=== PATIENT | male | born 1950 | race Caucasian/White ===

== ENCOUNTER 2019-02-23 06:49 | Inpatient (IN) | payer BC, MEDICARE ==
--- NOTE | 2019-02-16 11:38 | HPE ---
DATE OF ADMISSION: 02/23/2019 HISTORY OF PRESENT ILLNESS: This is a pleasant 68-year-old male with continuing symptomatic right knee osteoarthritis. He has consented for a right total knee arthroplasty per Dr. Yobani Champion. Medical optimization per Dr. Ramírez. X-rays are consistent with advanced osteoarthritis. ALLERGIES: Reports undesirable reaction to Z-Oz and previous cortisone injections. MEDICATIONS: - hydrochlorothiazide 25 mg 1 tablet orally once a day - Refresh 1.4 - 0.6% solution 1 drop ophthalmic daily - twice a day - aspirin 81 mg tablet delayed release 1 tablet orally once a day - enalapril maleate 20 mg tablet 1 tablet orally once a day - atorvastatin calcium 20 mg tablet 1 tablet orally once a day - metformin HCl 500 mg tablet 1 tablet q.a.m., 2 tablets q.p.m.; 1 tablet q.h.s. orally as directed MEDICAL HISTORY: Includes symptomatic right knee osteoarthritis, type 2 diabetes mellitus, asthma, gallbladder disease, hyperlipidemia, hypertension, and rheumatic fever. Transient ischemic attack (TIA) 10/2018. SURGICAL HISTORY: LASIK 1999, cholecystectomy and hernia repair 2015, knee surgery, hernia repair, right index finger release 03/31/2017. FAMILY HISTORY: Noncontributory. He denies any issue with anesthesia in the family. SOCIAL HISTORY: He has never smoked. He only has had about 3 or 4 alcohol drinks in the last year. Denies illicit drugs. REVIEW OF SYSTEMS: Denies chest pain, shortness of breath, dyspnea on exertion, fever, chills, malaise, upper respiratory or urinary tract symptoms. LABORATORIES: Reviewed lab results showed elevated glucose at 197, otherwise appearing within normal limits. EKG: Sinus rhythm with occasional ventricular premature complexes, which were new compared to prior borderline ECG, physician building construction contractor Kelvin Wilson DO. Chest X-ray: No acute abnormalities as read by Zan MD. MEDICAL CLEARANCE: Reviewed, per Dr. Ramírez, stating that the patient is cleared for surgery. PHYSICAL EXAMINATION: Vital Signs: Temperature 96.4. Height 67.75. Weight 187 pounds 4 ounces. Body mass index (BMI) 28.7. This is a pleasant, well-developed, well-nourished male, in no acute distress. He is alert and times three. Mood and affect are appropriate. He is ambulating without overt antalgia assistance or favoring. Normocephalic. Neck: Supple. Negative jugular venous distention (JVD) or bruits. Chest: Rises symmetrically. Lungs: Clear to auscultation. Chest: Regular rate and rhythm. Bowel sounds times four, soft, nontender. Bilateral lower extremities skin is intact, benign noninfectious looking. Right knee positive tenderness about the medial joint line with crepitance through flexion and extension. IMPRESSION: 1. Right knee symptomatic osteoarthritis. 2. The patient consented for right total knee arthroplasty per Dr. Yobani Champion. 3. Medical optimization per Dr. Ramírez. 4. On-call to operating room (OR) 2 grams IV Kefzol in OR. 5. Sequential compressive device (SCD) and thromboembolism deterrents (TEDs) in OR.
[~2019-02-23] VITALS: Ht 175.3 cm; Wt 85.3 kg
[~2019-02-23 06:49] MED LIST: ENAL20TA PO; HYDR25TAB PO; LIDOCAINE 1% MDV 20ML VIAL SQ PRN; METF500T13 PO
[2019-02-23] MEDS ORDERED: ceFAZolin SOD 2 GM in IV 1 EA IV ONE (07:00)
[2019-02-23] MEDS ORDERED: LR 1,000 ML IV ONE (07:00)
[2019-02-23] MEDS ORDERED: ACETAMINOPHEN 500 MG TAB PO ONE (07:00)
[2019-02-23] MEDS ORDERED: PROPOFOL 500 MG/50 ML VIAL As Ordered ONE (08:46)
[2019-02-23] MEDS ORDERED: LIDOCAINE 2% INJ 100 MG/5 ML SDV (FOR ANES.) As Ordered ONE (08:46)
[2019-02-23] MEDS ORDERED: MIDAZOLAM INJ 2 MG/2 ML VIAL (J2250) As Ordered ONE (08:47)
[2019-02-23] MEDS ORDERED: dexameTHASONE 4 MG/ML 1ML VIAL (J1100) As Ordered ONE (08:47)
[2019-02-23] MEDS ORDERED: ONDANSETRON 4MG/2ML VIAL (J2405) As Ordered ONE (08:47)
[2019-02-23] MEDS ORDERED: fentaNYL 100 MCG/2 ML INJECTION (J3010) As Ordered ONE (08:47)
[2019-02-23] MEDS ORDERED: PHENYLephrine HCL 500 MCG/5 ML (100MCG/ML) SYRINGE (J2370) As Ordered ONE ×2 (08:57→11:03)
[2019-02-23] MEDS: ENALAPRIL MALEATE 10 MG TAB PO SCH (09:00)
[2019-02-23] MEDS: hydroCHLOROthiazide 25 MG TAB PO SCH (09:00)
[2019-02-23] MEDS: MIDAZOLAM INJ 2 MG/2 ML VIAL (J2250) IV SCH ×2 (09:02→09:08)
[2019-02-23] MEDS ORDERED: fentaNYL 100 MCG/2 ML INJECTION (J3010) IV SCH (09:30)
[2019-02-23] MEDS ORDERED: TRANEXAMIC ACID 100 MG/ML 10ML VIAL As Ordered ONE (09:34)
[2019-02-23] MEDS ORDERED: BUPIVACAINE HCL 0.25% 30 ML VIAL As Ordered ONE (09:35)
[2019-02-23] MEDS ORDERED: BUPIVACAINE LIPOSOME/PF 1.3% 20ML VIAL (13.3MG/ML)(EXPAREL)(C9290 PER1MG) As Ordered ONE (09:35)
[2019-02-23] MEDS ORDERED: EPINEPHrine INJ 1 MG/ML 1ML VIAL As Ordered ONE (09:35)
[2019-02-23] MEDS ORDERED: ceFAZolin 1GM INJ (J0690 PER 500MG) As Ordered ONE (09:35)
[2019-02-23] MEDS ORDERED: PROPOFOL 200 MG/20 ML VIAL As Ordered ONE (11:28)
[2019-02-23] MEDS ORDERED: LR 1,000 ML IV SCH (12:15)
[2019-02-23] MEDS ORDERED: ONDANSETRON 4MG/2ML VIAL (J2405) IV PRN (12:15)
[2019-02-23] MEDS ORDERED: METOCLOPRAMIDE INJ 10MG/2ML VIAL (J2765) IV PRN (12:15)
[2019-02-23] MEDS ORDERED: fentaNYL 100 MCG/2 ML INJECTION (J3010) IV PRN (12:15)
[2019-02-23] MEDS ORDERED: oxyCODONE 5MG TAB PO PRN (12:15)
[2019-02-23] MEDS ORDERED: FLEET ENEMA PR PRN (12:15)
[2019-02-23] MEDS ORDERED: MEPERIDINE INJ 25 MG/ML VIAL (J2175) IV PRN (12:15)
--- NOTE | 2019-02-23 12:25 | REP ---
Clinical: Status post knee replacement. Technique AP and cross-table lateral views. Findings: The patient is status post right knee replacement with normal positioning and appearance to the femoral and tibial components. Overlying postsurgical changes appreciated. Impression: Status post right knee replacement. Electronically Signed by Hollis Ravi MD 02/23/2019 12:16 P
[2019-02-23 13:00] VITALS: BP 146/84
[2019-02-23 13:30] VITALS: BP 144/83
[2019-02-23] MEDS ORDERED: HYDROMORPHONE HCL 0.5 MG/ 0.5 ML SYRINGE (J1170 PER 1) IV PRN ×2 (13:30)
[2019-02-23 14:30] VITALS: BP 143/83
--- NOTE | 2019-02-23 15:12 | CR.PDOC ---
General Date of Consultation: Feb 23, 2019 Consultation CHIEF COMPLAINT: R. knee pain HISTORY OF PRESENT ILLNESS: Patient is 69M with PMH R. knee OA, NIDDM, Asthma and HTN presented with chronic knee pain and underwent R. TKA. Patient had procedure with orthopedic surgery today now post op complaining of mild pain in R. knee at this time. He reports the pain in his knee had been ongoing for more than 10 years, describe as 7/10, sharp, radiating to upper thigh, with some relief from analgesics previously. He reports feeling better post op and denies any other complaints apart from mild pain in R. knee. PAST MEDICAL HISTORY: Refer to HPI PAST SURGICAL HISTORY: Cholecystectomy hernia repair R. TKA SOCIAL HISTORY: Social alcohol. Denies tobacco or illicit drug use. FAMILY HISTORY: Mother- HLD ALLERGIES: Please see below. REVIEW OF SYSTEMS: 10 point review of system negative except as stated in HPI HOME MEDICATIONS: Please see below. PHYSICAL EXAMINATION: General: No acute distress, Alert Eyes: Normal sclera, EOMI HENT: Atraumatic Cardiovascular: Normal rate, normal rhythm. Pulmonary: Clear to auscultation b/l, no wheezing GI: Soft, nontender, nondistended MSK: R. knee with overlying dressing, mild tenderness on palpation Skin: Warm and dry Neuro: CN grossly intact. No focal deficits. Strengths equal b/l. Psych: oriented x 3 LABORATORY DATA: See below. MICROBIOLOGY: Please see below. ASSESSMENT AND PLAN: 1. R. knee OA - s/p R. TKA with orthopedic surgery. - Pain management. PT for evaluation and treatment. - Xarelto for VT ppx. 2. NIDDM - ISS ACHS at this time. - Plan to resume metformin tomorrow given no significant impairment in kidney functions. - monitor BS. 3. HTN - c/w Enalapril and HCTZ. 4. Asthma - nebs PRN for SOB. DVT ppx: Xarelto Vital Signs/I&O Vital Signs Date Time Temp Pulse Resp B/P (MAP) Pulse Ox O2 Delivery O2 Flow Rate FiO2 02/23/19 13:30 97.8 80 20 144/83 (103) 98 Room Air 02/23/19 09:48 2 Laboratory Data Labs 24H Laboratory Tests 2 02/23/19 07:56: Bedside Glucose (Misc Panel) 209H Allergies Coded Allergies: No Known Allergies (Unverified , 02/22/19) Home Medications Scheduled Enalapril Maleate (Enalapril Maleate) 20 Mg Tablet, 40 MG PO DAILY, (Reported) Hydrochlorothiazide (Hydrochlorothiazide) 25 Mg Tablet, 25 MG PO DAILY, (Reported) Metformin HCl (Metformin HCl) 500 Mg Tablet, 500 MG PO BID, (Reported) TAKES AM/NOON Metformin HCl (Metformin HCl) 500 Mg Tablet, 1,000 MG PO QHS, (Reported) Scheduled PRN Acetaminophen (Acetaminophen ER) 650 Mg Tablet.er, 650 MG PO TID PRN for KNEE PAIN, (Reported) NAOMI HUFF MD Feb 23, 2019 15:12
[2019-02-23] MEDS ORDERED: DEXTROSE 50% 50 ML SYRINGE IV PRN (15:15)
[2019-02-23] MEDS ORDERED: GLUCOSE 4 GM CHEW TABLET PO PRN (15:15)
[2019-02-23] MEDS ORDERED: GLUCAGON FOR INJ 1 MG VIAL (J1610) SC PRN (15:15)
[2019-02-23] MEDS ORDERED: ACE65ERTAB PO (15:32)
[2019-02-23] MEDS: LR 1,000 ML IV SCH (16:39)
[2019-02-23] MEDS: ceFAZolin SOD 2 GM in IV 1 EA IV SCH ×2 (16:39→21:36)
[2019-02-23] MEDS: HumaLOG INSULIN (NovoLOG) PER UNIT SC SCH (17:32)
[2019-02-23] MEDS: ACETAMINOPHEN TAB 650MG DOSE (2X325MG) PO PRN ×2 (17:33→21:36)
[2019-02-23] MEDS ORDERED: HumaLOG INSULIN (NovoLOG) PER UNIT SC SCH (21:00)
[2019-02-23 21:32] VITALS: BP 142/82
[2019-02-24] MEDS: LR 1,000 ML IV SCH (00:45)
[2019-02-24 02:08] VITALS: BP 136/86
[2019-02-24] MEDS: ACETAMINOPHEN TAB 650MG DOSE (2X325MG) PO PRN ×2 (02:26→08:40)
[2019-02-24] MEDS: ceFAZolin SOD 2 GM in IV 1 EA IV SCH (04:22)
[2019-02-24 06:05] VITALS: BP 138/82
[2019-02-24 06:48] LABS: HEMATOCRIT 37.5 % (42.0-52.0); HEMOGLOBIN 13.3 g/dl (13.5-17.5); MEAN CORPUSCULAR HEMOGLOBIN 32.3 pg (27.0-33.0); MEAN CORPUSCULAR HGB CONC 35.5 g/dl (32.0-36.5); PLATELET COUNT, AUTOMATED 170 10^3/uL (150-450); RED BLOOD COUNT 4.12 10^6/uL (4.30-6.10)
[2019-02-24] MEDS ORDERED: PERC5TAB12 PO (06:51)
[2019-02-24] MEDS ORDERED: XARE10TA PO (06:51)
[2019-02-24 06:58] LABS: INR 1.09; PROTHROMBIN TIME 13.8 SECONDS (11.8-14.0)
[2019-02-24 07:05] LABS: BLOOD UREA NITROGEN 17 MG/DL (7-18); CALCIUM LEVEL 8.3 MG/DL (8.8-10.2); CARBON DIOXIDE LEVEL 29 MEQ/L (21-32); CHLORIDE LEVEL 103 MEQ/L (98-107); GLOMERULAR FILTRATION RATE > 60.0 (>49); GLUCOSE, FASTING 190 MG/DL (70-100); POTASSIUM SERUM 4.2 MEQ/L (3.5-5.1); SODIUM LEVEL 139 MEQ/L (136-145)
[2019-02-24] MEDS: HumaLOG INSULIN (NovoLOG) PER UNIT SC SCH (07:30)
[2019-02-24] MEDS: hydroCHLOROthiazide 25 MG TAB PO SCH (08:40)
[2019-02-24 08:41] VITALS: BP 138/82
[2019-02-24] MEDS: ENALAPRIL MALEATE 10 MG TAB PO SCH (08:41)
[2019-02-24] MEDS ORDERED: metFORMIN (GLUCOPHAGE) 500 MG TAB PO SCH ×2 (09:00→21:00)
[2019-02-24] MEDS ORDERED: SENOKOT S TAB PO SCH (09:00)
--- NOTE | 2019-02-24 13:11 | IPNPDOC ---
Date Seen The patient was seen on 02/24/19. Progress Note SUBJECTIVE: Patient seen and examined at the bedside morning. He is sitting up in a chair preparing to go home. He reports that the pain in his right knee is 3 out of 10 and is well managed with pain medications. He denies any headaches, dizziness, lightheadedness, shortness of breath, nausea or vomiting. He does report that he has not had a bowel movement since the surgery. He requests some stool softeners. Otherwise, no other complaints. OBJECTIVE PHYSICAL EXAMINATION: GENERAL APPEARANCE: Sitting up at the bedside, appears stated age, no acute distress, calm, cooperative HEENT: EOMI, PERRLA, neck is supple with no thyromegaly or lymphadenopathy RESPIRATORY: Lungs are clear to auscultation bilaterally with no adventitious breath sounds appreciated CARDIOVASCULAR: no JVD, RRR,no murmurs/rubs/gallops ABDOMEN: Soft, nontender to palpation in all four quadrants, no masses/organomegaly EXTREMITIES: Right knee with dressing and evidence of swelling in calf, otherwise normal range of motion is appreciated NEUROLOGICAL: No obvious focal deficits PSYCHIATRIC: normal mood/affect Skin: No rashes or ulcers. LN: No significant cervical or inguinal lymphadenopathy LABORATORY DATA, IMAGING STUDIES, MICROBIOLOGY: Please see below. Echocardiogram: None DVT prophylaxis ordered?: Patient is on Xarelto for DVT prophylaxis ASSESSMENT AND PLAN: This is a 69-year-old male who is postop day 2 status post right TKA. The patient will be discharged home today with plan for rehabilitation. PROBLEMS: 1. Right knee osteoarthritis -Postoperative day 2 TKA. Pain is managed. -Xarelto for DVT prophylaxis -Plan for outpatient PT follow-up and orthopedic surgery follow-up 2. , Iwu-[id number]-[id number] diabetes mellitus -Patient will continue his metformin at home 3. , Hypertension -Continue home enalapril and hydrochlorothiazide 4. History of asthma -Well-controlled. Duo nebs ordered for shortness of breath DISPOSITION: Plan for discharge home today with follow-up outpatient with ortho pedic surgery and physical therapy VS, I&O, 24H, Fishbone Vital Signs/I&O Vital Signs Date Time Temp Pulse Resp B/P (MAP) Pulse Ox O2 Delivery O2 Flow Rate FiO2 02/24/19 08:41 138/82 02/24/19 06:05 97.6 79 18 95 Room Air 02/23/19 09:48 2 I&O- Last 24 Hours up to 6 AM 02/24/19 06:00 Intake Total 2600 ml Output Total 745 ml Balance 1855 ml Laboratory Data 24H LABS Laboratory Tests 2 02/23/19 16:38: Bedside Glucose (Misc Panel) 246H 02/23/19 21:28: Bedside Glucose (Misc Panel) 254H 02/24/19 06:34: Nucleated Red Blood Cells % (auto) 0.0, Prothrombin Time 13.8, Prothromb Time International Ratio 1.09, Anion Gap 7L, Glomerular Filtration Rate > 60.0, Calcium Level 8.3L CBC/BMP Laboratory Tests 02/24/19 06:34 GME ATTESTATION GME ATTESTATION My faculty preceptor for this patient encounter was physically present during the encounter and was fully available. All aspects of the patient interview, examination, medical decision making process, and medical care plan development were reviewed and approved by the faculty preceptor. The faculty preceptor is aware and concurs with the plan as stated in the body of this note and will attest to such by his/her cosignature. ATTENDING NOTE I have personally evaluated and examined the patient. Discussed with resident/student regarding plan of care and agree with the above assessment and plan. MIKAELA FRAZIER MD Feb 24, 2019 13:11 NAOMI HUFF MD Feb 24, 2019 14:08
[2019-02-24] MEDS ORDERED: RIVAROXABAN 10 MG TAB (XARELTO) PO SCH (18:00)
--- NOTE | 2019-02-25 07:42 | RO ---
DATE OF PROCEDURE: 02/23/2019 PREPROCEDURE DIAGNOSIS: Right knee degenerative arthritis. POSTPROCEDURE DIAGNOSIS: Right knee degenerative arthritis. PROCEDURE: Right total knee arthroplasty using a size 7 cruciate-retaining femoral component cemented with a size 7 tibial tray and a 38 mm polyethylene button. All components were cemented. Prosthesis made by [employer]. It was Attune knee. SURGEON: Dr. Jagjit Champion ROUTE SALESMAN: Mr. Mauricio Becerra ANESTHESIA: Right femoral nerve block with a spinal. COMPLICATIONS: None. SPECIMENS: Joint surface. ESTIMATED BLOOD LOSS: 20 mL. COMPLICATIONS: None. DESCRIPTION OF PROCEDURE: Antibiotics were given intravenously preoperatively, successful right femoral nerve block and then spinal anesthetic was induced, tourniquet placed on the right upper thigh, not inflated. Right lower extremity was carefully prepped and draped in the usual sterile fashion, elevated and after appropriate time out, tourniquet inflated. Longitudinal incision was made for a medial parapatellar approach to the knee. Bovie cautery was used to coagulate crossing vessels. Subperiosteal dissection around the proximal medial and lateral tibial plateau performed. Patella was everted, the knee flexed, drill placed down the center of the femoral canal followed by the intramedullary lopez and the distal femoral cutting jig set for a 5-degree valgus cut for a right knee at 9 mm resection level. Block was pinned in position, distal femoral cut performed, AP sizing jig measured for a size 7 prosthesis. 3 degrees of external rotation were dialed in and the 4-in-1 block was pinned to the knee and then the anterior, posterior, chamfer cuts performed. Sulcus cut jig was then placed for a sulcus osteotomy and then the proximal tibia was exposed using the extramedullary alignment jig to estimate being parallel to the mechanical axis, referencing off the medial tibial condyle at 4 mm resection level. The block was pinned into position. Secondary check with the extramedullary lopez confirmed that we appeared to be parallel to the mechanical axis. Thus, the proximal tibial osteotomy was performed. Lamina supervisor contingents was placed medially, and we performed a completion lateral meniscectomy and debridement of the posterolateral osteophytes. We then placed the lamina supervisor contingents laterally and performed a completion medial meniscectomy and debridement of the posteromedial osteophytes. Spacer block at 6 mm actually fit nicely with good symmetry in flexion and extension with excellent stability to varus/valgus stress testing both in flexion and in extension. We then exposed the proximal tibia and sized for a size #7 tibial tray, which was pinned in position, followed by the reamer and the broach, trial polyethylene placed. Femoral component was placed, brought the knee into extension, everted the patella, and performed a patellar osteotomy, sized for a 38 button. Lug holes drilled, trial placed, patellofemoral tracking was anatomic. At this point, we drilled the lug holes for the femur, removed all the trial components and placed Exparel in the subperiosteal tissues around the distal femur and the proximal tibia. Then, my assistant production manager, Mr. Mauricio Becerra, mixed the cement on the back table as I prepared the bony surfaces for cementing. He was critical to the success of this difficult procedure by helping to manipulate the knee as needed, helped with appropriate soft tissue retraction, helped to mix the cement, and helped to close the wound, and helped to prepare the patient amongst many other tasks to allow me to perform the operation smoothly, efficiently, and safely. Once all the bony surfaces were thoroughly irrigated and dried, I cemented the tibial tray, removed excess cement, placed the polyethylene and cemented the femoral component, removed excess cement, brought the knee into extension, everted the patella and cemented the patellar button, held it with a clamp with the knee in full extension until the cement hardened. As we were awaiting this, we copiously pulsatile lavage irrigated out the knee joint. We then placed tranexamic acid in the knee joint, and then closed the apex of the arthrotomy with two #1 PDS sutures, the medial parapatellar area was closed with a #1 PDS suture, and a running double-armed #1 Stratafix used to close the capsule. Then, the tourniquet was released. We irrigated between layers, closed the deep subdermal tissues with interrupted #2-0 PDS sutures, skin was closed with betty, covered by an Optifoam and a dry sterile bulky dressing. The patient was then transferred to the recovery room in stable condition. There were no intraoperative complications.
== END 2019-02-24 12:00 | disposition home or self-care (01) | DRG 470 ==
LOC: M OR 06:49 → M MS5PR 13:03
PROVIDERS: ADMIT Orthopaedic Surgery; ATTEND Orthopaedic Surgery
PROC: 0SRC0J9 Replacement of Right Knee Joint with Synthetic Substitute, Cemented, Open Approach (ICD-10-PCS; principal; 2019-02-23 09:40)
DX: M17.11 Unilateral primary osteoarthritis, right knee (principal); Z79.82 Long term (current) use of aspirin; Z79.899 Other long term (current) drug therapy; E11.9 Type 2 diabetes mellitus without complications; J45.909 Unspecified asthma, uncomplicated; E78.5 Hyperlipidemia, unspecified; I10 Essential (primary) hypertension; Z86.73 Personal history of transient ischemic attack (TIA), and cerebral infarction without residual deficits